=== PATIENT | male | born 1985 | race Caucasian/White ===

== ENCOUNTER 2016-06-11 12:10 | Emergency (ER) | payer SELFPAY ==
[~2016-06-11] VITALS: Ht 185.4 cm; Wt 88.5 kg
[2016-06-11 12:12] VITALS: BP 146/88; PULSE 78; RESP 20; TEMP 98.7; O2SAT 99
--- NOTE | 2016-06-11 12:36 | PD ---
Physical Exam Time Seen by Provider: 12:33 Narrative 30 yo male detoxing from methadone x2 days. Reports nausea, vomiting. Denies thoughts of suicide. Pain all over. VSS Seen in triage, awaiting bed placement. Data Data Last Documented VS Vital Signs Date Time Temp Pulse Resp B/P Pulse Ox O2 Delivery O2 Flow Rate FiO2 06/11/16 12:12 98.7 78 20 146/88 99 Room Air [facility] Supervised Visit with EMIL: Ashley Kessler Jun 11, 2016 12:36
== END 2016-06-11 13:05 | disposition left against medical advice (07) ==
LOC: NED 12:10
DX: R11.2 Nausea with vomiting, unspecified (principal)
CPT/HCPCS: 99282

== ENCOUNTER 2016-06-11 15:27 | Emergency (ER) | payer SELFPAY ==
[~2016-06-11] VITALS: Ht 185.4 cm; Wt 90.0 kg
[2016-06-11 15:35] VITALS: BP 137/85; PULSE 78; RESP 20; TEMP 98.3; O2SAT 99
--- NOTE | 2016-06-11 15:42 | PD ---
Physical Exam Time Seen by Provider: 15:41 Narrative 30 yo male detoxing from methadone x2 days. Wants to stop taking methadone. Reports nausea, vomiting, diarrhea. Denies thoughts of suicide. Pain all over. VSS Seen in triage, awaiting bed placement. Data Data Last Documented VS Vital Signs Date Time Temp Pulse Resp B/P Pulse Ox O2 Delivery O2 Flow Rate FiO2 06/11/16 15:35 98.3 78 20 137/85 99 Room Air MDM Supervised Visit with EMIL: Ashley Kessler Jun 11, 2016 15:42
[2016-06-11] MEDS ORDERED: DICYCLOMINE HCL 10 MG CAP PO ONE (16:45)
[2016-06-11] MEDS ORDERED: ONDANSETRON ODT 4 MG TAB PO ONE (16:45)
[2016-06-11] MEDS ORDERED: cloNIDine HCL 0.1 MG/24 HR PATCH T-DERMAL ONE (16:45)
[2016-06-11] MEDS ORDERED: CYCLOBENZAPRINE HCL 10 MG TAB PO ONE (16:45)
--- NOTE | 2016-06-11 16:46 | PD ---
HPI Chief Complaint: Medical Clearance Time Seen by Provider: 16:30 Travel History International Travel<30 days: No Contact w/Intl Traveler<30days: No Traveled to known affect area: No History of Present Illness HPI Patient is a 30-year-old male presenting to emergency department experiencing symptoms of DTs from methadone withdrawal. Patient states he was taking 70 mg daily, he has not had a dose in 2 days. He reports body aches, nausea, vomiting , diarrhea, chills, sweats. He reports feeling unable to sleep and feels jittery. Patient states he initially started out on Roxicodone and then was put on Suboxone and then was on methadone. He was on 150 mg in [facility] and decrease the dose to 70 mg here, he requested to be weaned off of it from the methadone clinic but they wouldn't allow the patient stopped cold turkey 2 days ago. [facility] Past Medical History Medical History: Denies Significant Hx Medical other: Yes (herniated discs) Immunizations Current: Yes Tetanus Vaccination: < 5 Years Social History Alcohol Use: No Tobacco Use: No Substance Use: Yes Allergies-Medications (Allergen,Severity, Reaction): Coded Allergies: Keflex (Verified Allergy, Intermediate, hives, 06/11/16) Review of Systems Except as stated in HPI: all other systems reviewed are Neg General / Constitutional: Positive: Chills, Other (sweats), No: Fever Eyes: No: Visual changes HENT: No: Headaches Cardiovascular: Positive: Diaphoresis, No: Chest Pain or Discomfort Respiratory: No: Shortness of Breath Gastrointestinal: Positive: Nausea, Vomiting, Diarrhea, Abdominal Pain ( cramping) Genitourinary: No: Dysuria Musculoskeletal: Positive: Myalgias, Cramping Neurologic: No: Weakness, Dizziness, Syncope, Focal Abnormalities Physical Exam Narrative GENERAL: Developed, well-nourished, alert male. SKIN: Focused skin assessment warm/dry. HEAD: Atraumatic. Normocephalic. EYES: Pupils equal and round. No scleral icterus. No injection or drainage. ENT: No nasal bleeding or discharge. Mucous membranes pink and moist. NECK: Trachea midline. No JVD. CARDIOVASCULAR: Regular rate and rhythm. No murmur appreciated. RESPIRATORY: No accessory muscle use. Clear to auscultation. Breath sounds equal bilaterally. GASTROINTESTINAL: Abdomen soft, non-tender, nondistended. Hepatic and splenic margins not palpable. MUSCULOSKELETAL: No obvious deformities. No clubbing. No cyanosis. No edema. NEUROLOGICAL: Awake and alert. No obvious cranial nerve deficits. Motor grossly within normal limits. Normal speech. PSYCHIATRIC: Appropriate mood and affect; insight and judgment normal. Data Data Last Documented VS Vital Signs Date Time Temp Pulse Resp B/P Pulse Ox O2 Delivery O2 Flow Rate FiO2 06/11/16 15:35 98.3 78 20 137/85 99 Room Air Orders Clonidine 0.1 Mg Patch.7d (Catapres-Tts (06/11/16 16:45) Cyclobenzaprine (Flexeril) (06/11/16 16:45) Ondansetron Odt (Zofran Odt) (06/11/16 16:45) Dicyclomine (Bentyl) (06/11/16 16:45) MDM Medical Decision Making Medical Screen Exam Complete: Yes Emergency Medical Condition: Yes Interpretation(s) Vital Signs Date Time Temp Pulse Resp B/P Pulse Ox O2 Delivery O2 Flow Rate FiO2 06/11/16 15:35 98.3 78 20 137/85 99 Room Air Differential Diagnosis Withdrawal versus substance abuse versus mood disorder versus viral syndrome versus other Narrative Course Patient is a 30-year-old male presenting to the emergency department to DTs from methadone. His last dose was 48 hours ago. Discussed plan of care with my attending physician. Patient will be provided with symptomatic management at this time. Patient left the emergency department AMA, he did not tell anybody he was leaving. Disposition: 07 AGAINST MEDICAL ADVICE Charis Conner Jun 11, 2016 16:46
--- NOTE | 2016-06-11 16:56 | PD ---
Data Data Last Documented VS Vital Signs Date Time Temp Pulse Resp B/P Pulse Ox O2 Delivery O2 Flow Rate FiO2 06/11/16 15:35 98.3 78 20 137/85 99 Room Air Orders Clonidine 0.1 Mg Patch.7d (Catapres-Tts (06/11/16 16:45) Cyclobenzaprine (Flexeril) (06/11/16 16:45) Ondansetron Odt (Zofran Odt) (06/11/16 16:45) Dicyclomine (Bentyl) (06/11/16 16:45) MDM Supervised Visit with EMIL: Yes Narrative Course The history, exam, and medical decision-making in the associated mid-level provider note were completed with my assistance. I reviewed and agree with the findings presented. I attest that I had a [id number] encounter with the patient on the same day, and personally performed and documented my assessment and findings in the medical record. *My assessment and Findings: 30 year-old man, quitting cold turkey from 70 mg of methadone. Here with withdrawal symptoms. Wanted detox but there is no bed at [facility]. Recommend supportive treatment. Gigi Taveras MD Jun 11, 2016 16:56
== END 2016-06-11 18:12 | disposition left against medical advice (07) ==
LOC: NEPD 15:27
DX: F11.23 Opioid dependence with withdrawal (principal); R11.2 Nausea with vomiting, unspecified; M79.1 Myalgia
CPT/HCPCS: 99283